=== PATIENT | female | born 1945 | race Caucasian/White ===

== ENCOUNTER → 2020-12-18 15:24 | Outpatient (CLI) | payer MEDICARE ==
[2011-01-10 08:57] VITALS: BMI 45.0
[2020-12-18 16:09] LABS: BILIRUBIN NEGATIVE (NEGATIVE); KETONE NEGATIVE (NEGATIVE); NITRITE NEGATIVE (NEGATIVE); UROBILINOGEN 8 mg/dL (< 2); WHITE CELLS - URINE 0-5 HPF (0-4)
[2020-12-18 16:10] LABS: BACTERIA FEW HPF (NONE SEEN)
== END | disposition home or self-care (01) ==
LOC: D.LABREF 15:24
PROVIDERS: ATTEND Internal Medicine
DX: N39.0 Urinary tract infection, site not specified (principal)

== ENCOUNTER → 2021-01-29 19:41 | Outpatient (CLI) | payer MEDICARE ==
[2011-01-10 08:57] VITALS: BMI 45.0
[2021-01-29 20:11] LABS: BILIRUBIN NEGATIVE (NEGATIVE); KETONE NEGATIVE (NEGATIVE); NITRITE NEGATIVE (NEGATIVE); UROBILINOGEN NORMAL mg/dL (< 2)
== END | disposition home or self-care (01) ==
LOC: D.LABREF 19:41
PROVIDERS: ATTEND Internal Medicine
DX: N39.0 Urinary tract infection, site not specified (principal)